=== PATIENT | male | born 1955 | race African-American/Black ===

== ENCOUNTER 2017-06-17 08:06 | Day surgery (SDC) | payer MEDICARE, MEDICAID ==
[~2017-06-17] VITALS: Ht 177.8 cm; Wt 108.9 kg
[~2017-06-17 08:06] MED LIST: BENA20TA3 PO; CHOL100046 PO; FAMO-134 PO; GLIP5TAB20 PO; LIP40 PO; NATE60TA PO; OMEP40CA34 PO
[2017-06-17] MEDS ORDERED: SODIUM CHLORIDE 0.9% 1,000 ML IV SCH (08:40)
[2017-06-17 08:54] LABS: BASOPHILS % 0.7 % (0.0-2.0); HEMATOCRIT. 44.8 % (42.0-52.0); HEMOGLOBIN. 15.2 g/dL (14.0-18.0); LYMPHOCYTES % 26.2 % (20.0-50.0); MEAN CORPUSCULAR HEMOGLOBIN 30.6 pg (28.0-32.0); MEAN CORPUSCULAR VOLUME 89.9 fL (80.0-94.0); MONOCYTES % 10.7 % (2.0-8.0); NEUTROPHILS % 58.4 % (40.0-76.0); PLATELET 121 x1000/uL (130-400); RED BLOOD CELL COUNT 4.98 mill/uL (4.7-6.1); RED CELL DISTRIBUTION WIDTH 13.5 % (11.6-14.6)
[2017-06-17] MEDS ORDERED: MIDAZOLAM HCL 2 MG/2 ML VIAL ONE ×2 (10:10→10:14)
[2017-06-17] MEDS ORDERED: LIDOCAINE HCL/PF 1% 10 MG/ML 5ML VIAL ONE (10:10)
[2017-06-17] MEDS ORDERED: PROPOFOL 200MG/20ML VIAL IV ONE (10:10)
[2017-06-17] MEDS ORDERED: GLYCOPYRROLATE 0.2 MG/ML 2ML VIAL ONE (10:10)
[2017-06-17] MEDS ORDERED: FENTANYL CITRATE/PF 50MCG/ML 2ML VIAL ONE (10:10)
== END 2017-06-17 11:30 | disposition home or self-care (01) ==
LOC: OR 08:06
PROVIDERS: ATTEND Ophthalmology
DX: E11.39 Type 2 diabetes mellitus with other diabetic ophthalmic complication (principal); H40.89 Other specified glaucoma; Z79.84 Long term (current) use of oral hypoglycemic drugs; K21.9 Gastro-esophageal reflux disease without esophagitis; I10 Essential (primary) hypertension; E78.00 Pure hypercholesterolemia, unspecified; Z96.1 Presence of intraocular lens
CPT/HCPCS: 36415; 80048; 82962; 85025; 92019; 93005; J2250; J3010; J3490; J7120; J2704

== ENCOUNTER 2019-04-20 06:52 | Day surgery (SDC) | payer MEDICARE, MEDICAID ==
[~2019-04-20] VITALS: Ht 160 cm; Wt 60.3 kg
[~2019-04-20 06:52] MED LIST changes: +BENA20TA10 PO; -BENA20TA3 PO; +OMEP40CA12 PO; -OMEP40CA34 PO
[2019-04-20] MEDS ORDERED: SODIUM CHLORIDE 0.9% 1,000 ML IV SCH (08:00)
[2019-04-20] MEDS ORDERED: MIDAZOLAM HCL 2 MG/2 ML VIAL ONE ×2 (08:18→08:19)
[2019-04-20] MEDS ORDERED: FENTANYL CITRATE/PF 50MCG/ML 2ML VIAL ONE ×2 (08:27→08:46)
== END 2019-04-20 10:50 | disposition home or self-care (01) ==
LOC: OR 06:52
PROVIDERS: ATTEND Ophthalmology
DX: E11.39 Type 2 diabetes mellitus with other diabetic ophthalmic complication (principal); H40.10X0 Unspecified open-angle glaucoma, stage unspecified; H42 Glaucoma in diseases classified elsewhere; H50.10 Unspecified exotropia; F79 Unspecified intellectual disabilities; E11.22 Type 2 diabetes mellitus with diabetic chronic kidney disease; I12.9 Hypertensive chronic kidney disease with stage 1 through stage 4 chronic kidney disease, or unspecified chronic kidney disease; N18.3 Chronic kidney disease, stage 3 (moderate); E78.5 Hyperlipidemia, unspecified; K21.9 Gastro-esophageal reflux disease without esophagitis; Z96.1 Presence of intraocular lens; Z88.1 Allergy status to other antibiotic agents; Z88.8 Allergy status to other drugs, medicaments and biological substances; Z79.899 Other long term (current) drug therapy; Z98.890 Other specified postprocedural states
CPT/HCPCS: 82962; 92018; 93005; C1893; J2250; J3010

== ENCOUNTER → 2021-05-08 | Day surgery (SDC) | payer MEDICARE, MEDICAID ==
[~2021-05-08] VITALS: Ht 157.5 cm; Wt 57.2 kg
[~2021-05-08] MED LIST changes: +BALANCED SALT IRRIG SOLN COMB1 500ML OP SCH; +CARB15DR2 EACHEYE; +CYCLOPENTOLATE HCL 1% OPHTH DROPS 2ML BOTHEYE ONE; +CYCLOPENTOLATE HCL 1% OPHTH DROPS 2ML ONE; +FENTANYL CITRATE/PF 50MCG/ML 2ML VIAL ONE; +HYDROMORPHONE HCL/PF 2MG/ML CPJ IV PRN; +LABETALOL 5MG/ML SYR 20 MG/4 ML SYRINGE IV PRN; +MEPERIDINE HCL/PF 25MG/ML CPJ IV PRN; +MIDAZOLAM HCL 2 MG/2 ML VIAL ONE; -OMEP40CA12 PO; +OMEP40CA20 PO; +ONDANSETRON HCL 4MG/2ML INJ IV PRN; +ONDANSETRON HCL 4MG/2ML INJ ONE; +PHENYLEPHRINE HCL 10% OPHTH DROPS 5ML BOTHEYE ONE; +PRED5DRO22 BOTHEYE; +SODIUM CHLORIDE 0.9% 500 ML IV SCH; +TROPICAMIDE 1% OPHTH DROPS 15ML EACHEYE ONE; +TROPICAMIDE 1% OPHTH DROPS 15ML ONE
== END | disposition home or self-care (01) ==
LOC: OR 07:22
PROVIDERS: ATTEND Ophthalmology
DX: H40.10X0 Unspecified open-angle glaucoma, stage unspecified (principal); F79 Unspecified intellectual disabilities; I12.9 Hypertensive chronic kidney disease with stage 1 through stage 4 chronic kidney disease, or unspecified chronic kidney disease; E11.22 Type 2 diabetes mellitus with diabetic chronic kidney disease; N18.30 Chronic kidney disease, stage 3 unspecified; K21.9 Gastro-esophageal reflux disease without esophagitis; E78.00 Pure hypercholesterolemia, unspecified; Z79.899 Other long term (current) drug therapy; Z98.890 Other specified postprocedural states; Z88.1 Allergy status to other antibiotic agents; Z88.8 Allergy status to other drugs, medicaments and biological substances
CPT/HCPCS: 36415; 82962; 84132; 87426; 92018; 93005; J2250; J2405; J3010

== ENCOUNTER → 2024-02-24 | Day surgery (SDC) | payer MEDICARE, MEDICAID ==
[~2024-02-24] VITALS: Ht 162.6 cm; Wt 54.9 kg
[~2024-02-24] MED LIST changes: -BALANCED SALT IRRIG SOLN COMB1 500ML OP SCH; +BENA-8 PO; -BENA20TA10 PO; -CYCLOPENTOLATE HCL 1% OPHTH DROPS 2ML BOTHEYE ONE; +EMPA10TA PO; -FAMO-134 PO; -GLIP5TAB20 PO; +HYALURONATE SODIUM 10MG/ML 0.85ML SYRINGE IO ONE; +HYDROMORPHONE HCL/PF 1MG/ML INJ IV PRN; -HYDROMORPHONE HCL/PF 2MG/ML CPJ IV PRN; +LABETALOL 5MG/ML 4ML INJ IV PRN; -LABETALOL 5MG/ML SYR 20 MG/4 ML SYRINGE IV PRN; -NATE60TA PO; +NATE60TA13 PO; -OMEP40CA20 PO; -ONDANSETRON HCL 4MG/2ML INJ ONE; -PHENYLEPHRINE HCL 10% OPHTH DROPS 5ML BOTHEYE ONE; -SODIUM CHLORIDE 0.9% 500 ML IV SCH; -TROPICAMIDE 1% OPHTH DROPS 15ML EACHEYE ONE; -TROPICAMIDE 1% OPHTH DROPS 15ML ONE; +TRYPAN BLUE 0.5 ML DISP.SYRIN IO ONE
[2024-02-24 07:33] LABS: POTASSIUM 5.2 mEq/L (3.5-5.1)
[2024-02-24 07:34] LABS: CALCIUM 9.9 mg/dL (8.7-10.4)
[2024-02-24 07:39] LABS: CREATININE 2.1 mg/dL (0.6-1.3)
[2024-02-24 07:45] LABS: HEMATOCRIT. 42.7 % (42.0-52.0); HEMOGLOBIN. 14.2 g/dL (14.0-18.0); MEAN CORPUSCULAR HEMOGLOBIN 30.1 pg (28.0-32.0); MEAN CORPUSCULAR HGB CONC 33.2 g/dL (31.0-37.0); MEAN CORPUSCULAR VOLUME 90.7 fL (80.0-94.0); MEAN PLATELET VOLUME 9.5 fl (7.4-10.4); PLATELET 128 x1000/uL (130-400); RED BLOOD CELL COUNT 4.71 mill/uL (4.7-6.1); RED CELL DISTRIBUTION WIDTH 13.6 % (11.6-14.6); WHITE BLOOD COUNT 9.5 x1000/uL (4.5-11.0)
[2024-02-24 07:49] LABS: DIFFERENTIAL COMMENT 1
[2024-02-24] MEDS: SODIUM CHLORIDE 0.9% 1,000 ML IV SCH (08:31)
[2024-02-24 18:09] LABS: ATYPICAL LYMPHOCYTES 3
[2024-02-24 18:10] LABS: GIANT PLATELETS FEW; PLATELET ESTIMATE SLIGHTLY DECREASED
== END | disposition home or self-care (01) ==
LOC: OR 07:03
PROVIDERS: ATTEND Ophthalmology
DX: R62.50 Unspecified lack of expected normal physiological development in childhood (principal); E11.39 Type 2 diabetes mellitus with other diabetic ophthalmic complication; H40.10X0 Unspecified open-angle glaucoma, stage unspecified; H42 Glaucoma in diseases classified elsewhere; I49.3 Ventricular premature depolarization; I10 Essential (primary) hypertension; E78.5 Hyperlipidemia, unspecified; Z98.42 Cataract extraction status, left eye; Z98.41 Cataract extraction status, right eye; Z96.1 Presence of intraocular lens; Z79.899 Other long term (current) drug therapy; Z98.890 Other specified postprocedural states
CPT/HCPCS: 92020; 93005; 80048; 85025; 36415; J3010; J2250; J3490; Q9957